=== PATIENT | male | born 1985 | race Two or more races ===

== ENCOUNTER 2022-03-09 16:57 | Emergency (ER) | payer MEDICAID, OTHER ==
[~2022-03-09] VITALS: Ht 185.4 cm; Wt 128.8 kg
[2022-03-09 18:28] VITALS: BP 136/89
[2022-03-09] MEDS ORDERED: PROM1SOL4 PO (18:42)
[2022-03-09] MEDS ORDERED: AZIT500T66 PO (18:42)
== END 2022-03-09 18:58 | disposition home or self-care (01) ==
LOC: ER 16:57
DX: J20.9 Acute bronchitis, unspecified (principal); J03.90 Acute tonsillitis, unspecified